=== PATIENT | female | born 1995 | race Caucasian/White ===

== ENCOUNTER 2018-06-08 14:29 | Emergency (ER) | payer BC ==
[2018-06-08 14:49] VITALS: BP 121/79
--- NOTE | 2018-06-08 15:02 | ED Physician Documentation ---
PD HPI ABD PAIN - Stated complaint Stated Complaint: FEMALE - Chief complaint Chief Complaint: Abd Pain - History obtained from History obtained from: Patient - History of Present Illness Timing - onset: Other (For the last 2 days she has had left lower quadrant cramping at the end of urination associated with either hematuria or slight vaginal bleeding. She does not have menses due to Nexplanon in place. She has had nausea but no vomiting and sweats. No back pain.) Review of Systems Constitutional: reports: Sweats. denies: Fever, Chills GI: denies: Vomiting, Diarrhea : reports: Frequency, Hematuria. denies: Dysuria PD PAST MEDICAL HISTORY - Present Medications Home Medications: Ambulatory Orders Medication Instructions Recorded Confirmed Nitrofurantoin Monohyd/M-Cryst 100 mg PO BID #10 capsule 06/08/18 [Macrobid 100 mg Capsule] Phenazopyridine HCl [Pyridium] 200 mg PO TID PRN #6 tablet 06/08/18 PD ED PE NORMAL - Vitals Vital signs reviewed: Yes - General General: Alert and oriented X 3, No acute distress - Abdomen Abdomen: Normal bowel sounds, Soft, Non tender - Back Back: No CVA TTP, No spinal TTP - Neuro Neuro: Alert and oriented X 3, Normal speech Results - Vitals Vitals: Vital Signs - 24 hr 06/08/18 14:45 Temperature 36.8 C Heart Rate 88 Respiratory 14 Rate Blood Pressure 121/79 O2 Saturation 100 Oxygen O2 Source Room air - Labs Labs: Laboratory Tests 06/08/18 06/08/18 14:44 14:56 Urine Color YELLOW Urine Clarity CLOUDY Urine pH 7.0 Ur Specific [place] 1.020 1.020 Urine Protein 30 H Urine Glucose (UA) NEGATIVE Urine Ketones NEGATIVE Urine Occult Blood MODERATE H Urine Nitrite NEGATIVE Urine Bilirubin NEGATIVE Urine Urobilinogen 0.2 (NORMAL) Ur Leukocyte Esterase TRACE H Urine RBC TNTC H Urine WBC >25 H Urine WBC Clumps PRESENT Ur Squamous Epith Cells RARE Squamous Amorphous Sediment Few Urine Bacteria Many H Ur Microscopic Review INDICATED Urine Culture Comments INDICATED Urine HCG, Qual NEGATIVE PD MEDICAL DECISION MAKING - Sepsis Event Vital Signs: Vital Signs - 24 hr 06/08/18 14:45 Temperature 36.8 C Heart Rate 88 Respiratory 14 Rate Blood Pressure 121/79 O2 Saturation 100 Oxygen O2 Source Room air Departure - Departure Disposition: 01 Home, Self Care Clinical Impression: Cystitis Condition: Good Record reviewed to determine appropriate education?: Yes Instructions: ED UTI Cystitis Female Prescriptions: Nitrofurantoin Monohyd/M-Cryst [Macrobid 100 mg Capsule] 100 mg PO BID #10 capsule Phenazopyridine HCl [Pyridium] 200 mg PO TID PRN #6 tablet PRN Reason: dysuria Comments: We will culture your urine, the results should be done in 48-72 hours. If an antibiotic change is necessary we will call you. Return if worse in the meantime, especially if you develop increasing flank pain, fevers, or cannot keep down the medication.
[2018-06-08 15:14] LABS: BILIRUBIN,URINE NEGATIVE (NEGATIVE); GLUCOSE, URINE (UA) NEGATIVE (NEGATIVE); KETONES,URINE (UA) NEGATIVE (NEGATIVE); LEUKOCYTE ESTERASE, URINE TRACE (NEGATIVE); NITRITE,URINE NEGATIVE (NEGATIVE); OCCULT BLOOD,URINE MODERATE (NEGATIVE); PROTEIN,URINE 30 mg/dL (NEGATIVE); UROBILINOGEN,URINE 0.2 (NORMAL) E.U./dL (NORMAL)
[2018-06-08 15:23] LABS: CLARITY,URINE CLOUDY (CLEAR)
[2018-06-08 15:24] LABS: HCG UR QUAL NEGATIVE
[2018-06-08 15:25] LABS: AMORPHOUS SEDIMENT,UR Few /LPF; BACTERIA,URINE Many /HPF (None Seen); RBC,URINE TNTC /HPF (0-5); SQUAMOUS EPITHELIAL CELL,UR RARE Squamous (<= Few); WBC CLUMPS,URINE PRESENT
[2018-06-08] MEDS ORDERED: NITROFURANTOIN MACRO 100 MG CAPSULE PO STA (15:27)
[2018-06-08] MEDS ORDERED: PHENAZOPYRIDINE 100 MG TABLET PO STA (15:28)
== END 2018-06-08 15:44 | disposition home or self-care (01) ==
LOC: ED 14:29
DX: N30.90 Cystitis, unspecified without hematuria (principal)
CPT/HCPCS: 81001; 81025; 87077; 87086; 87181; 99281; 99283; A9270; 81003

== ENCOUNTER 2019-08-08 18:07 | Outpatient (CLI) | payer BC ==
[2019-08-08 18:46] LABS: BASOPHILS % (AUTO) 0.3 %; EOSINOPHILS # (AUTO) 0.1 10^3/uL (0.0-0.7); HGB - HEMOGLOBIN 13.1 g/dL (12.0-16.0); LYMPHOCYTES # (AUTO) 3.1 10^3/uL (1.5-3.5); LYMPHOCYTES % (AUTO) 42.2 %; MEAN CORPUSCULAR HEMOGLOBIN 29.4 pg (27.0-31.0); MEAN CORPUSCULAR HGB CONC 32.3 g/dL (32.0-36.0); MEAN PLATELET VOLUME 9.8 fL (7.9-10.8); MONOCYTES # (AUTO) 0.4 10^3/uL (0.0-1.0); MONOCYTES % (AUTO) 4.9 %; NEUTROPHILS # (AUTO) 3.7 10^3/uL (1.5-6.6); NEUTROPHILS % (AUTO) 51.2 %; PLT - PLATELET COUNT 239 10^3/uL (130-450); RED BLOOD COUNT 4.45 10^6/uL (4.20-5.40); WHITE BLOOD COUNT 7.3 x10^3/uL (4.8-10.8)
[2019-08-08 18:49] LABS: CALCIUM 9.5 mg/dL (8.5-10.3); CREATININE 0.7 mg/dL (0.4-1.0)
--- NOTE | 2019-08-09 15:40 | XRAY Report ---
Reason: BACK PAIN THORACIC REGION, NECK PAIN CHRONIC Procedure Date: 08/08/2019 Accession Number: [id number] / [id number] Procedure: XR - Cervical Spine 2 View CPT Code: Final Report FULL RESULT: EXAM: THORACIC SPINE RADIOGRAPHY CERVICAL SPINE RADIOGRAPHY EXAM DATE: 08/08/2019 06:55 PM. CLINICAL HISTORY: BACK PAIN THORACIC REGION, NECK PAIN CHRONIC. COMPARISON: CERVICAL SPINE 2 VIEW 08/08/2019 6:42 PM. TECHNIQUE: Thoracic spine 3 views, cervical spine 3 views. FINDINGS: Thoracic spine: Motion artifact degrades the lateral spine radiograph and limits the ability to evaluate the alignment of the lower thoracic spine. There is a mild dextrocurvature in the lower thoracic spine. The upper thoracic spine alignment is maintained on the swimmer's view. The vertebral body heights and intervertebral disk spaces are preserved. The visible portions of the lungs are clear. Cervical spine: The dens is largely obscured. The lateral masses are symmetric. There is mild reversal of the normal cervical lordosis. The spinal alignment is otherwise maintained. The vertebral body heights and intervertebral disk spaces are preserved. No prevertebral soft tissue swelling is seen. IMPRESSION: No evidence of acute fracture or subluxation within the limitations of the exam as described above. Mild lower thoracic dextrocurvature. RADIA
--- NOTE | 2019-08-09 15:40 | XRAY Report ---
Reason: BACK PAIN THORACIC REGION, NECK PAIN CHRONIC Procedure Date: 08/08/2019 Accession Number: [id number] / [id number] Procedure: XR - Thoracic Spine 2 View CPT Code: Final Report FULL RESULT: EXAM: THORACIC SPINE RADIOGRAPHY CERVICAL SPINE RADIOGRAPHY EXAM DATE: 08/08/2019 06:55 PM. CLINICAL HISTORY: BACK PAIN THORACIC REGION, NECK PAIN CHRONIC. COMPARISON: CERVICAL SPINE 2 VIEW 08/08/2019 6:42 PM. TECHNIQUE: Thoracic spine 3 views, cervical spine 3 views. FINDINGS: Thoracic spine: Motion artifact degrades the lateral spine radiograph and limits the ability to evaluate the alignment of the lower thoracic spine. There is a mild dextrocurvature in the lower thoracic spine. The upper thoracic spine alignment is maintained on the swimmer's view. The vertebral body heights and intervertebral disk spaces are preserved. The visible portions of the lungs are clear. Cervical spine: The dens is largely obscured. The lateral masses are symmetric. There is mild reversal of the normal cervical lordosis. The spinal alignment is otherwise maintained. The vertebral body heights and intervertebral disk spaces are preserved. No prevertebral soft tissue swelling is seen. IMPRESSION: No evidence of acute fracture or subluxation within the limitations of the exam as described above. Mild lower thoracic dextrocurvature. RADIA
== END 2019-08-08 18:08 | disposition home or self-care (01) ==
LOC: DI 18:07
PROVIDERS: ATTEND Registered Nurse
DX: M54.6 Pain in thoracic spine (principal); M54.2 Cervicalgia; Z13.228 Encounter for screening for other metabolic disorders; Z13.29 Encounter for screening for other suspected endocrine disorder; Z13.0 Encounter for screening for diseases of the blood and blood-forming organs and certain disorders involving the immune mechanism; M41.84 Other forms of scoliosis, thoracic region
CPT/HCPCS: 36415; 72040; 72070; 80048; 84443; 85025

== ENCOUNTER 2019-11-16 09:43 | Outpatient (CLI) | payer BC ==
--- NOTE | 2019-11-16 15:26 | XRAY Report ---
Reason: POSS FX/DISLOCATION 4TH DIGIT Procedure Date: 11/16/2019 Accession Number: [id number] / [id number] Procedure: XR - Finger(s) LT CPT Code: Final Report FULL RESULT: EXAM: LEFT 4 DIGIT RADIOGRAPHY EXAM DATE: 11/16/2019 09:58 AM. CLINICAL HISTORY: Fifth digit deformity. Left hand injury. Concern for fracture dislocation. COMPARISON: None. TECHNIQUE: 3 views of the left hand and 3 views of the fourth digit views. FINDINGS: Bones: There is a nondisplaced intra-articular fracture at the dorsal aspect of the base of the fourth distal phalanx which is best seen on the lateral view. No bone lesions. Joints: Normal. No subluxations. Soft Tissues: Normal. No soft tissue swelling. IMPRESSION: 1. Nondisplaced interarticular fracture at the dorsal aspect of the base of the fourth distal phalanx. RADIA
--- NOTE | 2019-11-16 15:26 | XRAY Report ---
Reason: FINGER DEFORMITY,PAIN IN LEFT FINGER Procedure Date: 11/16/2019 Accession Number: [id number] / [id number] Procedure: XR - Hand 2 View LT CPT Code: Final Report FULL RESULT: EXAM: LEFT 4 DIGIT RADIOGRAPHY EXAM DATE: 11/16/2019 09:58 AM. CLINICAL HISTORY: Fifth digit deformity. Left hand injury. Concern for fracture dislocation. COMPARISON: None. TECHNIQUE: 3 views of the left hand and 3 views of the fourth digit views. FINDINGS: Bones: There is a nondisplaced intra-articular fracture at the dorsal aspect of the base of the fourth distal phalanx which is best seen on the lateral view. No bone lesions. Joints: Normal. No subluxations. Soft Tissues: Normal. No soft tissue swelling. IMPRESSION: 1. Nondisplaced interarticular fracture at the dorsal aspect of the base of the fourth distal phalanx. RADIA
== END 2019-11-16 09:44 | disposition home or self-care (01) ==
LOC: DI 09:43
PROVIDERS: ATTEND Family Medicine
DX: S62.645A Nondisplaced fracture of proximal phalanx of left ring finger, initial encounter for closed fracture (principal)
CPT/HCPCS: 73140

== ENCOUNTER 2021-02-05 09:02 | Outpatient (CLI) | payer BC ==
--- NOTE | 2021-02-06 13:30 | Nuclear Medicine Report ---
PROCEDURE: Gastric Empty Small Bowel INDICATIONS: NAUSEA AND VOMITING RADIOPHARMACEUTICAL: 1.1 mCi Tc-99m sulfur colloid in an egg sandwich. TECHNIQUE: A Tc-99m labeled sulfur colloid labeled egg sandwich or oatmeal was served to the patient. Anterior and posterior planar images of the abdomen were obtained at 0 minutes and 30 minutes, then at hourly intervals up to 4 hours. The patient was upright and ambulating during the interval. COMPARISON: None available. FINDINGS: The stomach has normal size, morphology, and position. There is normal emptying of solid gastric con tents from the stomach by visual inspection. No gastroesophageal reflux is visualized. The percentage of tracer retained at specific time points are as follows: Time point Percent gastric retention Normal range 30 minutes 83% 70% or more 1 hour 54% 30% to 90% 2 hours 14% 60% or less 3 hours 6% 30% or less 4 hours 2% 10% or less IMPRESSION: Normal gastric emptying study. Reviewed by: Jennyfer Royal MD on 02/06/2021 1:28 PM PDT Approved by: Jennyfer Royal MD on 02/06/2021 1:28 PM PDT Station ID: [id number]
== END 2021-02-05 09:03 | disposition home or self-care (01) ==
LOC: DI 09:02
PROVIDERS: ATTEND Physician Assistant
DX: R11.2 Nausea with vomiting, unspecified (principal)
CPT/HCPCS: 78265

== ENCOUNTER 2021-12-25 10:39 | Outpatient (CLI) | payer BC | END 2021-12-25 10:40 | disposition home or self-care (01) | LOC: NS 10:39 | PROVIDERS: ATTEND Nurse Practitioner Family | DX: Z71.3 Dietary counseling and surveillance (principal); T78.1XXA Other adverse food reactions, not elsewhere classified, initial encounter; E66.01 Morbid (severe) obesity due to excess calories; K58.9 Irritable bowel syndrome, unspecified; K21.9 Gastro-esophageal reflux disease without esophagitis; Z68.30 Body mass index [BMI] 30.0-30.9, adult | CPT/HCPCS: 97802 ==

== ENCOUNTER 2022-05-24 11:29 | Outpatient (CLI) | payer BC ==
[2022-05-24 12:03] LABS: BASOPHILS % (AUTO) 0.4 %; EOSINOPHILS % (AUTO) 0.6 %; HCT - HEMATOCRIT 36.3 % (37.0-47.0); HGB - HEMOGLOBIN 12.2 g/dL (12.0-16.0); LYMPHOCYTES # (AUTO) 2.2 10^3/uL (1.5-3.5); LYMPHOCYTES % (AUTO) 31.4 %; MEAN CORPUSCULAR HEMOGLOBIN 30.1 pg (27.0-31.0); MEAN CORPUSCULAR HGB CONC 33.6 g/dL (32.0-36.0); MEAN CORPUSCULAR VOLUME 89.6 fL (81.0-99.0); MONOCYTES # (AUTO) 0.4 10^3/uL (0.0-1.0); MONOCYTES % (AUTO) 5.8 %; NEUTROPHILS # (AUTO) 4.3 10^3/uL (1.5-6.6); NEUTROPHILS % (AUTO) 61.5 %; PLT - PLATELET COUNT 231 10^3/uL (130-450); RED BLOOD COUNT 4.05 10^6/uL (4.20-5.40); RED CELL DISTRIBUTION WIDTH 12.3 % (12.0-15.0); WHITE BLOOD COUNT 6.9 x10^3/uL (4.8-10.8)
[2022-05-25 05:09] LABS: HBsAG SCREEN Negative (Negative); HIV SCREEN 4TH GENERATION Non Reactive (Non Reactive)
[2022-05-25 05:09] LABS: HCV AB <0.1 s/co ratio (0.0-0.9)
[2022-05-25 08:09] LABS: RPR Non Reactive (Non Reactive)
[2022-05-25 10:08] LABS: VARICELLA-ZOSTER AB IGG 752 index (Immune >165)
== END 2022-05-24 11:30 | disposition home or self-care (01) ==
LOC: LAB 11:29
PROVIDERS: ATTEND Nurse Practitioner Obstetrics & Gynecology
DX: Z36.89 Encounter for other specified antenatal screening (principal)
CPT/HCPCS: 36415; 81220; 81329; 85025; 86592; 86762; 86787; 86803; 86850; 86900; 86901; 87340; 87389

== ENCOUNTER 2022-06-04 09:25 | Outpatient (CLI) | payer BC | END 2022-06-04 09:26 | disposition home or self-care (01) | LOC: LAB 09:25 | PROVIDERS: ATTEND Nurse Practitioner Obstetrics & Gynecology | DX: Z53.9 Procedure and treatment not carried out, unspecified reason (principal) ==

== ENCOUNTER 2022-08-02 16:17 | Outpatient (CLI) | payer BC ==
--- NOTE | 2022-08-03 16:52 | Ultrasound Report ---
PROCEDURE: OB Detailed Eval INDICATIONS: SUPERVISION OF OUTSIDE/PRIOR DATING DATA: Last menstrual period (LMP): 03/12/2022. LMP-based estimated date of delivery (NEO): 12/17/2022. First dating scan (date and location): 05/12/2022. Estimated date of delivery (NEO) from first dating scan: 12/21/2022. The below data below was generated using the working NEO of 12/21/2022 TECHNIQUE: Real-time scanning was performed of the fetus, with image documentation and biometric measurements. Endovaginal scanning: Not indicated COMPARISON: None. FINDINGS: General: A single living intrauterine gestation is present. Presentation: Cephalic Placenta: Placental position is anterior, without previa. Amniotic fluid index: 12.8 cm, normal for gestational age. heart rate: 144 beats per minute. Maternal cervical canal: 3.7 cm long; normal length is 2.5 cm or more. biometrics: Biparietal diameter: 4.67 cm, 20 weeks, 1 day Head circumference: 17.5 cm, 20 weeks, 1 day Abdominal circumference: 14.2 cm, 19 weeks, 4 days. Femur length: 3.19 cm, 19 weeks, 6 days Estimated gestational age from initial scan: 19 weeks, 6 days Composite gestational age from present scan: 19 weeks, 3 days Estimated weight and percentile: 313.2 g, 41.4% Measurement variability in biometric dating: +/- 10 days from 12-20 weeks gestation, +/- 2 weeks from 20-30 weeks gestation, +/- 3 weeks at 30 weeks gestation or later. Anatomic survey: Neuro: Ventricles are normal at less than 10 mm. Cisterna magna is normal at 3-11 mm. Cerebellum i s normal in size and morphology. Nuchal skin fold: Normal at less than 6 mm between 14 and 20 weeks gestational age. Face: Nose and lips, facial profile are normal. Spine: Not well seen due to position. Heart: 4-chambered heart is present, with normal ventricular outflow tracts. Diaphragm: Diaphragm is intact. Stomach: Left-sided stomach is present. Kidneys: No hydronephrosis. Normal is less than 5 mm in 2nd trimester, less than 7 mm in 3rd trimester. Cord: 3 vessel cord has orthotopic insertion. Bladder: Normal in size. Extremities: All 4 extremities are visualized. IMPRESSION: 1. Single live intrauterine gestation with fetus in vertex presentation. heart rate is 144 bpm. Normal amount of amniotic fluid. Normal growth. Estimated weight is at 41.4%. 2. spine is not well seen on this study due to position. Rest of the anatomic surve y is normal. Reviewed by: Erick Sampson MD on 08/03/2022 4:51 PM PST Approved by: Erick Sampson MD on 08/03/2022 4:51 PM PST Station ID: [id number]
== END 2022-08-02 16:18 | disposition home or self-care (01) ==
LOC: DI 16:17
PROVIDERS: ATTEND Nurse Practitioner Obstetrics & Gynecology
DX: Z36.89 Encounter for other specified antenatal screening (principal)

== ENCOUNTER 2022-08-25 17:04 | Outpatient (CLI) | payer BC ==
--- NOTE | 2022-08-26 15:09 | Ultrasound Report ---
PROCEDURE: OB F/U or Repeat INDICATIONS: SUPERVISION OF OUTSIDE/PRIOR DATING DATA: Last menstrual period (LMP): 03/12/2022. LMP-based estimated date of delivery (NEO): 12/17/2022. First dating scan (date and location): 05/12/2022. Estimated date of delivery (NEO) from first dating scan: 12/21/2022. The below data below was generated using the ultrasound generated NEO of 12/21/2022 TECHNIQUE: Real-time scanning was performed of the fetus, with image documentation and biometric measurements. Endovaginal scanning: Not performed COMPARISON: 08/02/2022 FINDINGS: General: A single living intrauterine gestation is present. Presentation: Transverse with head to maternal right. Placenta: Placental position is anterior, without previa. Amniotic fluid index: 14.8 cm, normal for gestational age. heart rate: 143 beats per minute. Maternal cervical canal: 4.9 cm long; normal length is 2.5 cm or more. Focused sonographic evaluation of the spine was attempted. Unfortunately, there was again subop timal visualization of the spine in the sagittal plane due to the position of the spine along t he deep aspect of the sonographic window in addition to the lie. IMPRESSION: Suboptimal and nondiagnostic visualization of the spine. Reviewed by: Kael Arguello MD on 08/26/2022 3:08 PM PST Approved by: Kael Arguello MD on 08/26/2022 3:08 PM PST Station ID: [id number]
== END 2022-08-25 17:05 | disposition home or self-care (01) ==
LOC: DI 17:04
PROVIDERS: ATTEND Nurse Practitioner Obstetrics & Gynecology
DX: Z34.00 Encounter for supervision of normal first pregnancy, unspecified trimester (principal); Z36.89 Encounter for other specified antenatal screening

== ENCOUNTER 2022-09-26 10:26 | Outpatient (CLI) | payer BC ==
[2022-09-26 11:38] LABS: BASOPHILS % (AUTO) 0.2 %; EOSINOPHILS # (AUTO) 0.1 10^3/uL (0.0-0.7); EOSINOPHILS % (AUTO) 0.4 %; HCT - HEMATOCRIT 37.4 % (37.0-47.0); HGB - HEMOGLOBIN 12.4 g/dL (12.0-16.0); LYMPHOCYTES # (AUTO) 2.1 10^3/uL (1.5-3.5); LYMPHOCYTES % (AUTO) 17.7 %; MEAN CORPUSCULAR HEMOGLOBIN 30.4 pg (27.0-31.0); MEAN CORPUSCULAR HGB CONC 33.2 g/dL (32.0-36.0); MEAN CORPUSCULAR VOLUME 91.7 fL (81.0-99.0); MONOCYTES # (AUTO) 0.5 10^3/uL (0.0-1.0); MONOCYTES % (AUTO) 4.1 %; NEUTROPHILS % (AUTO) 77.2 %; PLT - PLATELET COUNT 220 10^3/uL (130-450); RED BLOOD COUNT 4.08 10^6/uL (4.20-5.40); RED CELL DISTRIBUTION WIDTH 13.6 % (12.0-15.0); WHITE BLOOD COUNT 11.6 x10^3/uL (4.8-10.8)
== END 2022-09-26 10:27 | disposition home or self-care (01) ==
LOC: LAB 10:26
PROVIDERS: ATTEND Nurse Practitioner Obstetrics & Gynecology
DX: Z36.9 Encounter for antenatal screening, unspecified (principal)
CPT/HCPCS: 36415; 82950; 85025; 85027

== ENCOUNTER 2022-11-24 17:45 | Outpatient (CLI) | payer BC ==
[2022-11-24 18:05] LABS: HCT - HEMATOCRIT 38.3 % (37.0-47.0); HGB - HEMOGLOBIN 12.8 g/dL (12.0-16.0); MEAN CORPUSCULAR HEMOGLOBIN 30.1 pg (27.0-31.0); MEAN CORPUSCULAR HGB CONC 33.4 g/dL (32.0-36.0); MEAN CORPUSCULAR VOLUME 90.1 fL (81.0-99.0); RED BLOOD COUNT 4.25 10^6/uL (4.20-5.40); RED CELL DISTRIBUTION WIDTH 13.2 % (12.0-15.0)
[2022-11-24 18:19] LABS: ALBUMIN/GLOBULIN RATIO 0.8 (1.0-2.2); BILIRUBIN,TOTAL 0.3 mg/dL (0.2-1.0); CALCIUM 9.1 mg/dL (8.5-10.3); CREATININE 0.5 mg/dL (0.4-1.0); POTASSIUM 3.7 mmol/L (3.5-5.0); TOTAL PROTEIN 6.7 g/dL (6.7-8.2)
[2022-11-24 18:29] LABS: CREATININE,URINE 219.8 mg/dL; PROTEIN/CREATININE RATIO,URINE 0.1 (<=0.2)
== END 2022-11-24 17:46 | disposition home or self-care (01) ==
LOC: LAB 17:45
PROVIDERS: ATTEND Nurse Practitioner Obstetrics & Gynecology
DX: R03.0 Elevated blood-pressure reading, without diagnosis of hypertension (principal)
CPT/HCPCS: 36415; 80053; 82570; 84156; 85027

== ENCOUNTER 2022-12-01 07:06 | Inpatient (IN) | payer BC ==
[2022-12-01] MEDS: SODIUM CHLORIDE FLUSH 0.9% 10 ML SYRINGE IVP SCH ×2 (07:45→17:29)
[2022-12-01] MEDS ORDERED: METHYLERGONOVINE 0.2 MG/ML VIAL IM PRN (08:17)
[2022-12-01] MEDS ORDERED: TERBUTALINE 1 MG/ML VIAL SUBQ PRN (08:17)
[2022-12-01] MEDS ORDERED: lidocaine 1% 20 ML MDV ID PRN (08:17)
[2022-12-01] MEDS ORDERED: fentaNYL 100 MCG/2 ML VIAL IVP PRN (08:17)
[2022-12-01] MEDS ORDERED: hydrALAZINE INJ 20 MG/ML VIAL IVP PRN ×2 (08:17)
[2022-12-01] MEDS ORDERED: TRANEXAMIC ACID IN NACL 1,000 MG/100 ML BAG IV PRN (08:17)
[2022-12-01] MEDS ORDERED: NIFEdipine 10 MG CAPSULE PO PRN (08:17)
[2022-12-01] MEDS ORDERED: OXYTOCIN/SODIUM CHLORIDE 500 ML IV PRN (08:17)
[2022-12-01] MEDS ORDERED: CARBOPROST TROMETHAMINE 250 MCG/ML AMP IM PRN (08:17)
[2022-12-01] MEDS ORDERED: LABETALOL 20 MG/4 ML SYRINGE IVP PRN ×3 (08:17)
[2022-12-01] MEDS ORDERED: miSOPROStoL 200 MCG TABLET PR PRN (08:17)
[2022-12-01] MEDS ORDERED: miSOPROStoL 200 MCG TABLET BC PRN (08:17)
[2022-12-01] MEDS ORDERED: OXYTOCIN 10 UNIT/ML VIAL IM PRN (08:17)
[2022-12-01] MEDS ORDERED: SODIUM CHLORIDE FLUSH 0.9% 10 ML SYRINGE IVP PRN (08:17)
[2022-12-01 08:33] LABS: BASOPHILS % (AUTO) 0.3 %; EOSINOPHILS # (AUTO) 0.1 10^3/uL (0.0-0.7); EOSINOPHILS % (AUTO) 0.7 %; HCT - HEMATOCRIT 36.1 % (37.0-47.0); HGB - HEMOGLOBIN 12.2 g/dL (12.0-16.0); LYMPHOCYTES # (AUTO) 2.4 10^3/uL (1.5-3.5); LYMPHOCYTES % (AUTO) 19.9 %; MEAN CORPUSCULAR HEMOGLOBIN 30.3 pg (27.0-31.0); MEAN CORPUSCULAR HGB CONC 33.8 g/dL (32.0-36.0); MEAN CORPUSCULAR VOLUME 89.6 fL (81.0-99.0); MEAN PLATELET VOLUME 11.8 fL (7.9-10.8); MONOCYTES # (AUTO) 0.8 10^3/uL (0.0-1.0); MONOCYTES % (AUTO) 6.3 %; NEUTROPHILS # (AUTO) 8.5 10^3/uL (1.5-6.6); NEUTROPHILS % (AUTO) 71.9 %; PLT - PLATELET COUNT 202 10^3/uL (130-450); RED BLOOD COUNT 4.03 10^6/uL (4.20-5.40); RED CELL DISTRIBUTION WIDTH 13.2 % (12.0-15.0); WHITE BLOOD COUNT 11.9 x10^3/uL (4.8-10.8)
[2022-12-01] MEDS: miSOPROStoL 100 MCG TABLET BC SCH ×2 (09:09→13:15)
[2022-12-01 09:14] LABS: CREATININE,URINE 91.6 mg/dL; PROTEIN/CREATININE RATIO,URINE 0.1 (<=0.2)
[2022-12-01 09:32] LABS: ALBUMIN 2.9 g/dL (3.2-5.5); ALBUMIN/GLOBULIN RATIO 0.9 (1.0-2.2); BILIRUBIN,TOTAL 0.4 mg/dL (0.2-1.0); CREATININE 0.5 mg/dL (0.4-1.0); POTASSIUM 3.8 mmol/L (3.5-5.0); TOTAL PROTEIN 6.2 g/dL (6.7-8.2)
--- NOTE | 2022-12-01 10:11 | HISTORY & PHYSICAL EXAMINATION ---
Admit History - Visit Reason Visit Reason: Other - : 1 Parity: 0 Premature: 0 Ectopic: 0 : 0 Care: positive: [facility] Risk/History: positive: None, induced HTN Smoking Status: Never smoker - Mother's Labs Mother's Blood Type: positive: O Mother's RH: positive: Positive GBS: positive: Group B Step Negative Rubella Status: positive: Immune Meds/Allgy - Home Medications Home Medications: Ambulatory Orders Medication Instructions Recorded Confirmed Nitrofurantoin Monohyd/M-Cryst 100 mg PO BID #10 capsule 06/08/18 [Macrobid 100 mg Capsule] Phenazopyridine HCl [Pyridium] 200 mg PO TID PRN #6 tablet 06/08/18 - Allergies Allergies/Adverse Reactions: Allergies Allergy/AdvReac Type Severity Reaction Status Date / Time kiwi Allergy Mild Itching Verified 12/01/22 08:41 latex Allergy Mild Unknown Verified 12/01/22 08:41 Review of Systems - Constitutional Constitutional: denies: Fatigue, Fever, Chills, Malaise - Eyes Eyes: denies: Blurred vision, Spots in vision, Vision loss, Dipolpia - Cardiovascular Cariovascular: denies: Irregular heart rate, Palpitations, Chest pain, Edema - Respiratory Respiratory: denies: Cough, Wheezing, SOB at rest - Gastrointestinal Gastrointestinal: denies: Constipation, Diarrhea, Nausea, Vomiting - Integumentary Integumentary: denies: Rash, Pruritis - Neurological Neurological: denies: Headache - Psychiatric Psychiatric: denies: Depression, Anxiety Physical - Abdominal Exam Vital Signs: Temp Pulse Resp BP Pulse Ox O2 Flow Rate 36.9 C 75 14 133/84 H 12/01/22 08:48 12/01/22 08:48 12/01/22 08:48 12/01/22 08:48 Contraction Intensity: positive: Mild Plan for Labor - Plan For Labor I expect patient to be DC'd or transferred within 96 hours.: Yes Plan for Labor: HPI This 27yo @ 37.5wks gestation by LMP c/w 8.5wk U/S presents to [facility] for medical induction of labor secondary to gestational hypertension. She denies PARKER, visual disturbances, RUQ or epigastric pain. Her blood pressure upon admission is 130s/80s. Cervix 1/50/-3, posterior, medium, and vertex with intact membranes. She denies vaginal bleeding, leakage of fluid or contractions. She reports +FM. [facility] the duration of her which has remained uncomplicated with the exception of newly diagnosed gestational hypertension and excessive weight gain in (61lbs). SHe has received adequate and consistent care for the duration of her . She is supported by her Mauro. She will be admitted to observation for pre-induction cervical ripening. 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 No tobacco, ETOH or recreational drug use. Occasional marijuana use. Caffeine intake - minimal. course: O positive, Antibody negative Rubella immune; Varicella immune Initial U/S @ 8.5wks c/w LMP dating Genetic screening - negative; CF neg; SMA neg FAS WNL with exception of poor visualization of spine. Anterior placenta, no previa. Size c/w dating (EFW 41%tile). ADEOLA WNL. 3VC. F/u for completion WNL. Covid vaccine - J&J 02/03/2021 Glucola 137 GBS negative Physical Exam: Normocephalic, atraumatic Heart RRR w/o M/G/R Lungs CTAB Abdomen gravid, soft, nontender FHR Baseline 140s, moderate variability, + accels, no decels No contractions appreciated via tocometry SVE 1/50/-3, posterior, medium. Vertex. Intact membranes Cody cervical ripening balloon insert with 60cc intrauterine and 60cc vaginal balloon. Pt tolerated insertion well. Bilateral LE's trace edema. Mood is good. Assessment: 27yo @ 37.5wks gestation by LMP c/w 8.5wk U/S Gestational hypertension FHR Category I GBS neg Plan: Maintain cody cervical ripening balloon x 12 hours and reevaluate at that time or sooner if expelled sooner. Misoprostol 50mcg BC q 4 hours for cervical ripening. Consider initiation of pitocin with expelling of balloon. Continuous monitoring Nitrous oxide PRN. Jacuzzi PRN. Epidural per maternal request. Anticipate .
--- NOTE | 2022-12-01 18:41 | PROVIDER PROGRESS NOTE ---
Labor Progress Note - Uterine Monitoring Uterine Monitoring Mode: positive: External toco Contraction Frequency (min/apart): occasional Contraction Intensity: positive: Mild Uterine Resting Tone: positive: Soft - Monitoring Monitor Mode: positive: External ultrasound Heart Rate Baseline: 140 Heart Rate Variability: positive: Moderate (6-25 bmp) Accelerations: positive: Present, 15x15 Decelerations: positive: None Strip Review: positive: Category I - Vaginal Exam Dilation (in cm): 4 Effacement (%): 75 Station: -3 Cervical Position: Posterior - Labor Progress Note Labor Progress Note/Additional Text: S: Feeling good overall. Currently walking in the halls with her . Mood is good. O: FHR 130s, moderate variability, + accels, no decels Contractions palpate mild occasionally with soft resting tone. SVE 4/75/-3, posterior. Vertex. A: 27yo @ 37.4wks gestation by LMP c/w 8.5wk U/S Gestational hypertension - Pre-E labs neg FHR Category I GBS neg P: Admit to inpatient status. Initiate pitocin for induction of labor with titration per protocol (start at 2mU and up by 2mU) Jacuzzi PRN. Nitrous oxide PRN. Epidural per maternal request. Continuous monitoring. Anticipate .
[2022-12-01] MEDS ORDERED: LACTATED RINGERS 250 ML IV ONE (18:55)
[2022-12-01] MEDS ORDERED: OXYTOCIN/SODIUM CHLORIDE 500 ML IV SCH (19:00)
[2022-12-01] MEDS: LACTATED RINGERS 1,000 ML IV SCH (20:33)
[2022-12-01] MEDS: ONDANSETRON 4 MG/2 ML VIAL IVP PRN (21:34)
[2022-12-02] MEDS ORDERED: ROPIVACAINE 0.2% 200 MG/100 ML BAG EP ONE (00:04)
--- NOTE | 2022-12-02 01:01 | ANESTHESIA ---
Pre-Anesthesia VS, & Labs - Diagnosis active labor - Procedure labor epidural Vital Signs: Temp Pulse Resp BP Pulse Ox O2 Flow Rate 36.9 C 95 16 132/85 H 100 12/01/22 08:48 12/01/22 20:16 12/01/22 20:16 12/01/22 20:16 12/01/22 20:16 Height: 5 ft 7 in Weight (kg): 116.573 kg Body Mass Index: 40.2 BMI Classification: Morbidly Obese - NPO >8 hours - Is Patient ?: Yes - Lab Results Current Lab Results: Laboratory Tests 12/01/22 09:12: Blood Type O POSITIVE, Antibody Screen NEGATIVE 12/01/22 09:12: Sodium 138, Potassium 3.8, Chloride 107, Carbon Dioxide 23, Anion Gap 8.0, BUN 7, Creatinine 0.5, Estimated GFR (MDRD) 150, Glucose 88, Calcium 9.0, Total Bilirubin 0.4, AST 17, ALT 11, Alkaline Phosphatase 204 H, Total Protein 6.2 L, Albumin 2.9 L, Globulin 3.3, Albumin/Globulin Ratio 0.9 L 12/01/22 07:45: WBC 11.9 H, RBC 4.03 L, Hgb 12.2, Hct 36.1 L, MCV 89.6, MCH 30.3, MCHC 33.8, RDW 13.2, Plt Count 202, MPV 11.8 H, Neut # (Auto) 8.5 H, Lymph # (Auto) 2.4, [place] # (Auto) 0.8, Eos # (Auto) 0.1, Baso # (Auto) 0.0, Absolute Nucleated RBC 0.00, Nucleated RBC % 0.0 Fish Bones: 12/01/22 07:45 12/01/22 09:12 Home Medications and Allergies Active Medications Carboprost Tromethamine (Carboprost Tromethamine 250 Mcg/Ml Amp) 250 mcg IM .ONCE PRN PRN Reason: Hemorrhage Fentanyl (Fentanyl 100 Mcg/2 Ml Vial) 50 mcg IVP Q1H PRN PRN Reason: Severe Pain (score 7-10) Hydralazine HCl (Hydralazine Inj 20 Mg/Ml Vial) 5 - 10 mg IVP Q20M PRN; Protocol PRN Reason: SBP> or= 160 OR DBP> or= 110 Hydralazine HCl (Hydralazine Inj 20 Mg/Ml Vial) 10 mg IVP .ONCE PRN; Protocol PRN Reason: SBP> or= 160 OR DBP> or= 110 Oxytocin/Sodium Chloride (Pitocin/Sodium Chloride) 500 mls @ 999 mls/hr IV PRN PRN; Protocol PRN Reason: POST- HEMORR PREVENTION Tranexamic Acid (Tranexamic 1,000 Mg/100ml-Nacl) 1,000 mg in 100 mls @ 600 mls/hr IV Q30M PRN PRN Reason: EBL >1200mL and within 3hr Lactated Ringer's (Lr) 1,000 mls @ 125 mls/hr IV .Q8H JOHN Last Admin: 12/01/22 20:33 Dose: 125 mls/hr Oxytocin/Sodium Chloride (Pitocin/Sodium Chloride) 500 mls @ 2 mls/hr IV TITR JOHN; Protocol Last Admin: 12/01/22 19:48 Dose: 2 milliunit/min, 2 mls/hr Labetalol HCl (Labetalol 20 Mg/4 Ml Syringe) 20 - 80 mg IVP Q10M PRN; Protocol PRN Reason: SBP> or= 160 OR DBP> or= 110 Labetalol HCl (Labetalol 20 Mg/4 Ml Syringe) 20 mg IVP .ONCE PRN; Protocol PRN Reason: SBP> or= 160 OR DBP> or= 110 Labetalol HCl (Labetalol 20 Mg/4 Ml Syringe) 20 - 40 mg IVP Q10M PRN; Protocol PRN Reason: SBP> or= 160 OR DBP> or= 110 Lidocaine HCl (Lidocaine 1% 20 Ml Mdv) 20 ml ID .ONCE PRN PRN Reason: PERINEAL REPAIR Stop: 12/04/22 08:19 Methylergonovine Maleate (Methylergonovine 0.2 Mg/Ml Vial) 0.2 mg IM .ONCE PRN PRN Reason: Hemorrhage Misoprostol (Misoprostol 200 Mcg Tablet) 600 mcg BC .ONCE PRN PRN Reason: Hemorrhage Misoprostol (Misoprostol 200 Mcg Tablet) 800 mcg AK .ONCE PRN PRN Reason: Hemorrhage Misoprostol (Misoprostol 100 Mcg Tablet) 50 mcg BC Q4H [facility] Last Admin: 12/01/22 13:15 Dose: 50 mcg Nifedipine (Nifedipine 10 Mg Capsule) 10 - 20 mg PO Q20M PRN; Protocol PRN Reason: SBP> or= 160 OR DBP> or= 110 Ondansetron HCl (Ondansetron 4 Mg/2 Ml Vial) 4 mg IVP Q4HR PRN PRN Reason: Nausea / Vomiting Last Admin: 12/01/22 21:34 Dose: 4 mg Oxytocin (Oxytocin 10 Unit/Ml Vial) 10 unit IM .ONCE PRN PRN Reason: Step One if no IV access. Sodium Chloride (Sodium Chloride Flush 0.9% 10 Ml Syringe) 10 ml IVP PRN PRN PRN Reason: NEEDED PER PROVIDER ORDERS Sodium Chloride (Sodium Chloride Flush 0.9% 10 Ml Syringe) 10 ml IVP Q8H JOHN Last Admin: 12/01/22 17:29 Dose: 10 ml Terbutaline Sulfate (Terbutaline 1 Mg/Ml Vial) 0.25 mg SUBQ .ONCE PRN PRN Reason: Tachystole Allergies/Adverse Reactions: Allergies Allergy/AdvReac Type Severity Reaction Status Date / Time kiwi Allergy Mild Itching Verified 12/01/22 08:41 latex Allergy Mild Unknown Verified 12/01/22 08:41 Anes History & Medical History - Anesthetic History Anesthesia Complications: reports: No previous complications Family history of Anesthesia Complications: Denies Family history of Malignant Hyperthermia: Denies - Medical History Cardiovascular: reports: None Pulmonary: reports: None Neuro: reports: Other (TBI) Smoking Status: Never smoker - Obstetrical History : 1 Parity: 0 Events: reports: None, induced HTN Exam General: Alert, Oriented x3, Cooperative Dental: WNL Mouth Openin Fingerbreadth Neck Mobility: Normal Mallampati classification: III Respiratory: Lungs clear Cardiovascular: Regular rate Plan Anesthesia Type: Epidural Consent for Procedure(s) Verified and Reviewed: Yes Code Status: Attempt Resuscitation ASA classification: 2-Mild systemic disease Is this case an emergency?: No
[2022-12-02] MEDS ORDERED: ONDANSETRON 4 MG/2 ML VIAL IVP PRN (01:02)
[2022-12-02] MEDS ORDERED: METOCLOPRAMIDE 10 MG/2 ML VIAL IVP PRN (01:02)
[2022-12-02] MEDS ORDERED: ROPIVACAINE 0.2% 200 MG/100 ML BAG EP PRN (01:02)
[2022-12-02] MEDS ORDERED: NALOXONE 0.4 MG/ML VIAL IVP PRN (01:02)
[2022-12-02] MEDS ORDERED: ePHEDrine 50 MG/ML VIAL IVP PRN (01:02)
[2022-12-02] MEDS ORDERED: diphenhydrAMINE INJ 50 MG/ML VIAL IVP PRN (01:02)
[2022-12-02] MEDS ORDERED: NALBUPHINE 10 MG/ML AMP IVP PRN (01:02)
[2022-12-02] MEDS: SODIUM CHLORIDE FLUSH 0.9% 10 ML SYRINGE IVP SCH (01:18)
[2022-12-02] MEDS: ONDANSETRON 4 MG/2 ML VIAL IVP PRN (01:18)
[2022-12-02] MEDS: LACTATED RINGERS 1,000 ML IV SCH (02:03)
[2022-12-02] MEDS ORDERED: HYDROCORTISONE 1% CREAM 28 GM TUBE PR PRN (06:24)
[2022-12-02] MEDS ORDERED: WITCH HAZEL/GLYCERIN 1 PAD TOP PRN (06:24)
--- NOTE | 2022-12-02 06:43 | DELIVERY NOTE ---
Delivery Note - Labor Labor: positive: Induced by oxytocin - Infant Delivery Method Delivery Method: positive: Spontaneous vaginal delivery - Cervical Ripening Method Cervical Ripening Method: positive: Balloon device, Misoprostil - Presentation Presentation: positive: Vertex, CARLOS - left occiput anterior - Nuchal Cord Nuchal Cord: positive: None - Amniotic Fluid Description Amniotic Fluid Description: positive: Clear - Episiotomy Type Episiotomy Type: positive: None - Laceration Laceration: positive: 1st degree, Labial - Delivery Outcome Delivery Outcome: positive: Livebirth - [place]: positive: Placed in direct skin contact with mother, Bulb syringe, Stimulated, Warmed, [place] used [place] sex: positive: Male - Cord Cord: positive: 3 vessels - Placenta Placenta: positive: Intact, Spontaneous - Estimated Blood Loss Estimated Blood Loss (in cc): 200 - Post Delivery Events Post Delivery Events: positive: No post delivery events - Delivery Comments (Free Text/Narrative) Delivery Comments (Free Text/Narrative): Labor: This 27yo @ 37.5wks gestation by LMP c/w 8.5wk U/S presented on 12/01/2022 for medical induction of labor secondary to gestational hypertension. Her blood pressures throughout the course of her admission have been intermittently, mildly elevated and she has continued to deny headaches, visual disturbances, RUQ or epigastric pain. Her preeclampsia labs were WNL. Cervix was 1/50/-3, posterior and vertex with intact membranes upon arrival. A cervical ripening balloon was placed and spontaneously expelled at 1730. She had also received 2 doses of 50mcg BC misoprostol for preinduction cervical ripening. Pitocin was initiated for labor induction at 1948 and titrated pre protocol for a maximum infusion rate of 3mU/mL. SROM occurred at 2356 and was noted to be a small amount of clear fluid. Epidural placed per maternal request. Pt progressed to c/c/+2 at 0430 with onset of active, spontaneous pushing at 0458. : Normal SVB of viable male infant on 12/02/2022 @ 0604. No nuchal cord. The was placed on maternal abdomen, stimulated, dried, and placed skin to skin. Apgars were 8/8 at 1 and 5 minutes respectively. Pitocin administered via IV for hemostasis The umbillical cord was allowed to stop pulsating at which time it was doubly clamped by CNM and cut by FOB. Cord blood was obtained. 3VC. Fundal massage and gentle cord traction applied for active management of the third stage. Placenta delivered spontaneously and intact at 0612. EBL 200mL. Fourth stage: Uterine fundus firm and there is no excessive bleeding. The perineum, vagina, and cervix were inspected and noted to have a minor right labial 1st laceration which was hemostatic and left unrepaired. Tissues well approximated. initiated. Family bonding well. Both mother and baby were left in stable condition.
[2022-12-02] MEDS: IBUPROFEN 800 MG TABLET PO SCH ×3 (07:15→20:11)
[2022-12-02] MEDS: ACETAMINOPHEN 500 MG TABLET PO SCH ×2 (07:15→15:55)
[2022-12-02] MEDS: DOCUSATE SODIUM 100 MG CAPSULE PO SCH ×2 (08:32→20:11)
[2022-12-03] MEDS: ACETAMINOPHEN 500 MG TABLET PO SCH ×2 (01:04→09:31)
[2022-12-03] MEDS: IBUPROFEN 800 MG TABLET PO SCH ×2 (04:06→09:31)
[2022-12-03 07:56] VITALS: BP 131/80
[2022-12-03] MEDS: DOCUSATE SODIUM 100 MG CAPSULE PO SCH (09:31)
--- NOTE | 2022-12-03 12:46 | Discharge Plan ---
Discharge Plan Problem Reviewed?: Yes Disposition: Home, Self Care Condition: Good Diet: Regular Activity Restrictions: No Restrictions Shower Restrictions: No Driving Restrictions: No Weight Bearing: Full Weight Instruction Topics: Vaginal After No Smoking: If you smoke, Please STOP! Call for help. Follow-up with: Mireille Santana CNM, ARNP [Provider Admit Priv/Credential] -
--- NOTE | 2022-12-03 12:46 | DISCHARGE SUMMARY ---
Discharge Summary Condition at Discharge: Good Discharge Disposition: 01 Home, Self Care - HOSPITAL COURSE Hospital Course: Date of Admission: 12/01/2022 Date of Discharge: 12/03/2022 Diagnosis on Admission: 1. 27yo @ 37.5wks gestation 2. Gestational hypertension 3. FHR Category I Diagnosis on Discharge: 1. 27yo s/p TSVB viable male on 05/04/2023 2. 1st degree laceration - intact 3. Normal recovery Brief History: She is a patient of [facility] who presented on 05/03/2023 for medical induction of labor secondary to gestational hypertension. She received 2 doses of BC misoprostol and a cervical ripening balloon for pre- induction cervical ripening. SROM occurred and was noted to be a moderate amount of clear fluid. Epidural was placed per maternal request. Pitocin initiated for induction of labor for a maximum infusion rate of 3mU/mL. She progressed to spontaneously deliver a viable male infant on 05/04/2023 at 0604 following a 1hr and 6 min second stage. 1st degree right labial laceration which was hemostatic and left unrepaired. Apgars were 8/9 at 1 and 5 minutes respectively. EBL 200mL. She has been doing well in her course. She is ambulating and tolerating a regular diet. She is urinating without difficulty and her lochia is normal. Her pain is well controlled with oral medications. She is without difficulty and bonding well with her baby. She will be discharged home today on day #1 with instructions to continue taking her vitamin while and to continue taking ibuprofen and tylenol over the counter as needed for pain management. She intends to follow up with myself at [facility] in 1 week for routine visit or sooner if needed. She has been given precautions to call if she has any worsening fevers, chills, abdominal pain, increased vaginal bleeding or foul smelling vaginal lochia. Physical exam: Normocephalic, atraumatic. Heart RRR w/o M/G/R, lungs CTAB. Abdomen soft and nontender with fundus firm at U. Perineum intact, light lochia rubra. Bilateral LE's trace edema. - ALLERGIES Allergies/Adverse Reactions: Allergies Allergy/AdvReac Type Severity Reaction Status Date / Time kiwi Allergy Mild Itching Verified 12/01/22 08:41 latex Allergy Mild Unknown Verified 12/01/22 08:41 - MEDICATIONS Home Medications: Ambulatory Orders Medication Instructions Recorded Confirmed Nitrofurantoin Monohyd/M-Cryst 100 mg PO BID #10 capsule 06/08/18 [Macrobid 100 mg Capsule] Phenazopyridine HCl [Pyridium] 200 mg PO TID PRN #6 tablet 06/08/18 - LABS Result Diagrams: 12/01/22 07:45 12/01/22 09:12
--- NOTE | 2022-12-03 14:28 | Labor Flowsheet ---
Labor Flowsheet Datetime Report Generated by CPN: 12/03/2022 14:28 Datetime: 12/03/2022 07:30 VITAL SIGNS NBP Sys/Adri/Mean (mmHg): 131 : 80 : 89 Pulse: 72 SpO2 (%): 99 Datetime: 12/02/2022 09:05 Stage of : Datetime: 12/02/2022 07:23 PAIN Pain Scale: 0 Datetime: 12/02/2022 06:13 MEDICATIONS Pitocin (milliunits): Increased to @ 999 Medication Comments: bolus Datetime: 12/02/2022 06:04 STAGE 2 Pushing: Coached on Pushing Pushing Position: Pushing with Contractions Datetime: 12/02/2022 06:03 Pushing Progress: Descent with Pushing Stage 2 Comments: head Datetime: 12/02/2022 06:00 Contraction Comments: unable to assess while pushing Comments: unable to assess while pushing Datetime: 12/02/2022 05:44 UTERINE ACTIVITY Monitor Mode: Palpation Quality: Strong FHR Baseline Rate : 145 Variability: Moderate 6-25 bpm Accelerations: 15X15 Category: Category I Datetime: 12/02/2022 05:35 LaborFlag: Labor Datetime: 12/02/2022 05:30 Temperature (C): 36.9 Pattern: Normal: <= 5 Contractions in 10 Minutes Resting Tone (Palpate): Relaxed Datetime: 12/02/2022 05:09 COMMUNICATION Communication: RN at Bedside Communication Comments: RN continuously at bedside Datetime: 12/02/2022 05:00 Frequency (min): 1-2 Duration (sec): 60-80 FHR Baseline Changes: No Baseline Change Decelerations: Variable Datetime: 12/02/2022 04:45 ASSESSMENT A Monitor Mode: Telemetry Datetime: 12/02/2022 04:34 Provider Notified (Name): CNM Esther Notification Reason: Status Update Datetime: 12/02/2022 04:30 Actions for Decelerations: Pitocin Off; IV Bolus; Sterile Vaginal Exam VAGINAL EXAM Dilatation (cm): 10.0 Effacement (%): 100 Station: 2 Exam by: LJ Spear RN Datetime: 12/02/2022 04:17 Patient Position/Activity: Left Tilt Patient Care Comments: peanut ball between knees Datetime: 12/02/2022 03:20 Pain Presence: None/Denies Datetime: 12/02/2022 03:18 I/O Interventions: Sandoval Cath Inserted Datetime: 12/02/2022 02:12 Strip Reviewed by: Spear RNC Datetime: 12/02/2022 02:01 Respirations: 16 Datetime: 12/02/2022 01:56 Pain Type: N/A Pain Coping: Breathing Through Contractions; Sleeping PATIENT CARE IV/Blood Work: IV Bolus Started Datetime: 12/02/2022 01:50 Anesthesia Level Check: T9 Datetime: 12/02/2022 01:39 Epidural Procedure: Loading Dose Datetime: 12/02/2022 01:38 Epidural Procedure Other: Pump Started Datetime: 12/02/2022 01:33 ANESTHESIA Anesthesia Plans: Epidural Datetime: 12/02/2022 01:24 PROCEDURE TIME OUT Procedure Verify: Correct Patient Identity; Correct Side and Site are Marked; Accurate Procedure Co nsent Form; Agreement on Procedure to be Done; Correct Patient Position; Safety Precautions Based on Patient History or Medication Use Anesthesia Comments: Lidocaine placed Datetime: 12/02/2022 01:21 Antiemetics/Antacids: Zofran (mg) @ 4mg SIVP Datetime: 12/02/2022 01:20 Epidural Positioning: Sitting Datetime: 12/02/2022 01:15 Nausea/Vomiting: Present Datetime: 12/02/2022 01:11 Pain Goal: 4 Datetime: 12/02/2022 01:02 Vaginal Bleeding: Normal Show Cervix, Consistency: Moderate Cervix, Position: Midposition Datetime: 12/02/2022 00:28 Monitor Interventions for FHR: Ultrasound Adjusted Datetime: 12/01/2022 23:57 Pain Assessment Comments: Patient requesting epidural at this time Datetime: 12/01/2022 23:56 Membrane Status: Ruptured Membranes Rupture Method: Spontaneous Amniotic Fluid Color: Clear Amniotic Fluid Amount: Scant Amniotic Fluid Odor: Normal Nitrazine: Positive Datetime: 12/01/2022 23:30 Monitor Interventions for UA: [place] Adjusted Datetime: 12/01/2022 23:00 Nurse Receiving Report: J Rogelio RN Datetime: 12/01/2022 22:01 Pain Location: Abdomen; Back Pain Relief Measures: Comfort Measures Datetime: 12/01/2022 21:15 Comfort Measures: Hot Shower/Tub/Spa Datetime: 12/01/2022 21:10 Temperature Route: Oral Datetime: 12/01/2022 20:58 Pitocin Checklist: At Least 1 Acceleration of 15 bpm x 15 Seconds in 30 Minutes or Adequate Variabi lity; No More than 1 Late Deceleration Occurred in Past 30 Minutes; No More than 2 Variable Decelerat ions > 60 Seconds in Duration and decreasing >60 bpm in 30 minutes; No More than 5 Uterine Contractio ns in 10 Minutes for any 20 Minute Interval; Uterus Palpates Soft between Contractions Datetime: 12/01/2022 20:06 Membranes Ruptured Date/Time: 12/01/2022 23:56 Datetime: 12/01/2022 19:30 MATERNAL ASSESSMENT Level of Consciousness: Alert DTR's/Clonus: DTRs 1+; No Clonus Headache: Denies Breath Sounds, Left: Clear and Equal Breath Sounds, Right: Clear and Equal RUQ Epigastric Pain: Denies Datetime: 12/01/2022 17:58 Provider Reviewed Strip: Yes Datetime: 12/01/2022 17:32 Cervical Ripening Agents: Sandoval Balloon; Cytotec @ Cervical Ripening Agents Other: [place] balloon spontaneously expulsed Datetime: 12/01/2022 14:00 Oxygen Method: Room Air
== END 2022-12-03 13:40 | disposition home or self-care (01) | DRG 807 ==
LOC: WFO 07:06 → FBP 07:15 → WFO 07:29 → FBP 07:30 → OBSVTOIN 18:32
PROVIDERS: ADMIT Nurse Practitioner Obstetrics & Gynecology; ATTEND Nurse Practitioner Obstetrics & Gynecology
PROC: 3E033VJ Introduction of Other Hormone into Peripheral Vein, Percutaneous Approach (ICD-10-PCS; 2022-12-01)
PROC: 10E0XZZ Delivery of Products of Conception, External Approach (ICD-10-PCS; principal; 2022-12-02)
DX: O13.4 Gestational [pregnancy-induced] hypertension without significant proteinuria, complicating childbirth (principal); Z37.0 Single live birth; O70.0 First degree perineal laceration during delivery; O99.214 Obesity complicating childbirth; E66.01 Morbid (severe) obesity due to excess calories; Z3A.37 37 weeks gestation of pregnancy
CPT/HCPCS: 80053; 82570; 84156; 85025; 86850; 86900; 86901; A9270; J7120